=== PATIENT | female | born 1980 | race Two or more races ===

== ENCOUNTER 2025-07-03 06:28 | Emergency (ER) | payer OTHER ==
[~2025-07-03] VITALS: Ht 157.5 cm; Wt 49.9 kg
[2025-07-03] MEDS ORDERED: GUAIFENESIN 200 MG/10 ML BLIST.PACK PO STA (07:13)
[2025-07-03] MEDS ORDERED: HYDROCODONE/CHLORPHEN P-STIREX 5 ML ML PO STA (07:15)
[2025-07-03 08:29] LABS: BASO % 0.9 % (0.1-1.2); EOS # 0.07 (0.04-0.54); EOS % 0.7 % (0.7-7.0); LYMPH # 1.33 (1.18-3.74); LYMPH % 12.6 % (19.3-53.1); MEAN PLATELET VOLUME 10.60 fl (9.4-12.4); MONO # 0.63 (0.24-0.82); MONO % 6.0 % (4.7-12.5); NEUT # 8.38 (1.56-6.13); NEUT % 79.6 % (34.0-71.1); RED CELL DISTRIBUTION WIDTH 12.5 % (11.6-14.4)
[2025-07-03 08:44] LABS: COVID-19 AG POSITIVE (NEGATIVE)
[2025-07-03] MEDS ORDERED: PAXLOVID 300-11 EAC1 PO (08:56)
[2025-07-03] MEDS ORDERED: TUSNEL LIQUID178 ML PO (08:56)
== END 2025-07-03 09:32 | disposition home or self-care (01) ==
LOC: ER 06:50
PROVIDERS: General Practice
DX: U07.1 COVID-19 (principal); R05.8 Other specified cough; R68.83 Chills (without fever)